=== PATIENT | female | born 1980 | race Hispanic/Latino ===

== ENCOUNTER 2017-09-17 17:15 | Emergency (ER) | payer OTHER ==
[2017-09-17] MEDS ORDERED: ACETAMINOPHEN EXTRA STRENGTH 500 MG TABLET ONE (18:30)
[2017-09-17] MEDS ORDERED: MAG HYDROX/AL HYDROX/SIMETH ES 30 ML SUSP UDCUP ONE (18:30)
[2017-09-17 18:48] LABS: APPEARANCE,URINE Cloudy (CLEAR); BILIRUBIN,URINE Negative (NEGATIVE); COLOR,URINE Yellow (YELLOW); GLUCOSE, URINE (UA) Negative (NEGATIVE); KETONES,URINE 15 mg/dL (NEGATIVE); LEUKOCYTE ESTERASE ,URINE Small (NEGATIVE); NITRATE,URINE Positive (NEGATIVE); OCCULT BLOOD,URINE Small (NEGATIVE); PROTEIN,URINE Trace (NEGATIVE)
[2017-09-17 18:54] LABS: HCG,QUAL RESULT NEGATIVE (NEGATIVE)
[2017-09-17 18:55] LABS: RAPID GROUP A STREP NEGATIVE (NEGATIVE)
[2017-09-17 18:57] LABS: BACTERIA,URINE Many /HPF (None Seen)
[2017-09-17 18:58] LABS: RBC,URINE 0-1 /HPF (0-1); SQUAMOUS EPITHELIAL CELL,UR 0-2 /HPF (0-2)
== END 2017-09-17 19:16 | disposition home or self-care (01) ==
LOC: EDH 17:15
DX: J02.9 Acute pharyngitis, unspecified (principal); N39.0 Urinary tract infection, site not specified
CPT/HCPCS: 81001; 81025; 87804; 87880

== ENCOUNTER 2018-01-01 18:36 | Emergency (ER) | payer OTHER ==
[2018-01-01] MEDS ORDERED: CEPHALEXIN 500 MG CAPSULE ONE (18:55)
[2018-01-01] MEDS ORDERED: DOXYCYCLINE HYCLATE 100 MG TABLET PO ONE (18:55)
[2018-01-01] MEDS ORDERED: ACETAMINOPHEN EXTRA STRENGTH 500 MG TABLET ONE (18:56)
== END 2018-01-01 20:16 | disposition home or self-care (01) ==
LOC: EDH 18:36
DX: L03.115 Cellulitis of right lower limb (principal); Z98.890 Other specified postprocedural states

== ENCOUNTER 2018-01-04 11:12 | Emergency (ER) | payer OTHER ==
[2018-01-04] MEDS ORDERED: LIDOCAINE HCL MPF 1% 5ML VIAL ONE (11:30)
== END 2018-01-04 11:49 | disposition home or self-care (01) ==
LOC: EDH 11:12
DX: L02.611 Cutaneous abscess of right foot (principal)
CPT/HCPCS: 10060; 99283; J3490

== ENCOUNTER 2019-03-15 01:12 | Emergency (ER) | payer OTHER ==
[2019-03-15] MEDS ORDERED: LIDOCAINE 1%-EPI 1:100,000 20 ML VIAL IJ ONE (02:52)
== END 2019-03-15 04:05 | disposition home or self-care (01) ==
LOC: EDH 01:12
DX: S01.81XA Laceration without foreign body of other part of head, initial encounter (principal); Z98.890 Other specified postprocedural states; W10.8XXA Fall (on) (from) other stairs and steps, initial encounter; Y93.89 Activity, other specified; Y92.098 Other place in other non-institutional residence as the place of occurrence of the external cause; Y99.8 Other external cause status
CPT/HCPCS: 12013; 99283; J3490

== ENCOUNTER 2019-09-05 10:02 | Inpatient (IN) | payer OTHER, SELFPAY ==
[~2019-09-05] VITALS: Ht 162.6 cm; Wt 87.5 kg
[2019-09-05] MEDS ORDERED: SODIUM CHLORIDE 0.9% 1000ML 3,000 ML IV ONE (10:25)
[2019-09-05 10:57] LABS: HEMATOCRIT 40.6 % (36-48); LYMPHOCYTES % (AUTO) 26.1 % (21.0-51.0); MEAN CORPUSCULAR HGB CONC 31.8 g/dL (32.0-36.0); MEAN CORPUSCULAR VOLUME 88.3 fL (79-99); MONOCYTES % (AUTO) 8.7 % (3.0-13.0); PLATELET COUNT (AUTO) 312 K/uL (130-400); RED CELL DISTRIBUTION WIDTH 15.2 % (11.0-15.5); WHITE BLOOD COUNT (AUTO) 5.1 K/uL (4.8-10.8)
[2019-09-05 11:06] LABS: CARBON DIOXIDE 29 mmol/L (21-32); CHLORIDE 98 mmol/L (101-111); CREATININE 1.1 mg/dL (0.5-1.5); GLOMERULAR FILTR. RATE CALC 59 mL/min (>60); GLUCOSE,RANDOM 142 mg/dL (70-105); POTASSIUM 3.6 mmol/L (3.5-5.1); SODIUM SERUM 136 mmol/L (136-145); UREA NITROGEN, BLOOD 13 mg/dL (7-18)
[2019-09-05 11:16] LABS: ALANINE AMINOTRANSFERASE 59 U/L (12-78); ALBUMIN 3.7 g/dL (3.5-5.0); ASPARTATE AMINOTRANSFERASE 59 U/L (10-37); BILIRUBIN,TOTAL 0.2 mg/dL (0.2-1.0); CREATINE KINASE, TOTAL 56 U/L (21-232); MYOGLOBIN 24 ng/mL (10-92); TOTAL PROTEIN, SERUM 8.7 g/dL (6.0-8.3); TROPONIN I < 0.04 ng/mL (0.00-0.06)
[2019-09-05 11:33] LABS: INR 0.92 (0.85-1.15); PARTIAL THROMBOPLASTIN TIME 29.5 SEC (26.3-35.5); RAPID GROUP A STREP NEGATIVE (NEGATIVE)
[2019-09-05] MEDS: SODIUM CHLORIDE 0.9% 1000ML 1,000 ML IV SCH (13:24)
[2019-09-05] MEDS ORDERED: ACETAMINOPHEN 325 MG TAB PO PRN (13:30)
[2019-09-05] MEDS ORDERED: ONDANSETRON HCL 4 MG/2 ML VIAL IV PRN (13:30)
[2019-09-05] MEDS ORDERED: LACTULOSE 20 GM/30 ML UDCUP PO PRN (13:30)
[2019-09-05] MEDS: AZITHROMYCIN 500MG+NS 250ML 250 ML IV SCH (14:00)
[2019-09-05] MEDS: CEFTRIAXONE SODIUM 1 GM IV SCH (14:00)
[2019-09-05 14:01] LABS: APPEARANCE,URINE Cloudy (CLEAR); BILIRUBIN,URINE Small (NEGATIVE); COLOR,URINE Dark Yellow (YELLOW); GLUCOSE, URINE (UA) Negative (NEGATIVE); KETONES,URINE 15 mg/dL (NEGATIVE); LEUKOCYTE ESTERASE ,URINE Negative (NEGATIVE); NITRATE,URINE Positive (NEGATIVE); OCCULT BLOOD,URINE Small (NEGATIVE); PH,URINE 5.5 (5.0-8.0); PROTEIN,URINE POS 2+ mg/dL (NEGATIVE)
[2019-09-05 14:15] LABS: BACTERIA,URINE Moderate /HPF (None Seen); RBC,URINE 0-1 /HPF (0-1)
[2019-09-05 14:17] LABS: ABG BASE EXCESS 1.2 mmol/L (-2.0-3.0); ABG HCO3 23.3 mmol/L (21.0-28.0); ABG OXYGEN SATURATION 96.8 % (95.0-99.0); ABG PCO2 30 mmHg (32-45)
[2019-09-05] MEDS ORDERED: METOPROLOL TARTRATE 25 MG TAB PO SCH (15:10)
[2019-09-05] MEDS ORDERED: METHYLPREDNISOLONE SOD SUCC 40MG/ML 1ML ONE (15:17)
[2019-09-05] MEDS ORDERED: ENOXAPARIN SODIUM 30 MG/0.3 ML SQ ONE (15:18)
[2019-09-05] MEDS ORDERED: SODIUM CHLORIDE 0.9% 1000ML 1,000 ML IV ONE (15:18)
[2019-09-05] MEDS ORDERED: AZITHROMYCIN 500MG+NS 250ML 250 ML IV ONE (15:18)
[2019-09-05] MEDS ORDERED: CEFTRIAXONE SODIUM 1 GM ONE (15:19)
[2019-09-05] MEDS ORDERED: METOPROLOL TARTRATE 25 MG TAB ONE (15:19)
[2019-09-05] MEDS ORDERED: SODIUM CHLORIDE 0.9% 50 ML IV ONE (15:20)
[2019-09-05] MEDS ORDERED: ALBUTEROL INHALER 90MCG/INH IH ONE (15:57)
[2019-09-05] MEDS: METOPROLOL TARTRATE 25 MG TAB PO SCH (21:00)
[2019-09-05 21:23] VITALS: BP 116/86
[2019-09-06] VITALS: BP 108/63
[2019-09-06] MEDS: SODIUM CHLORIDE 0.9% 1000ML 1,000 ML IV SCH ×3 (01:16→19:24)
[2019-09-06 04:00] VITALS: BP 99/59
[2019-09-06 05:10] LABS: HEMATOCRIT 35.9 % (36-48); LYMPHOCYTES % (AUTO) 23.9 % (21.0-51.0); MEAN CORPUSCULAR HEMOGLOBIN 27.8 pg (27.0-33.0); MEAN CORPUSCULAR HGB CONC 31.5 g/dL (32.0-36.0); MEAN CORPUSCULAR VOLUME 88.2 fL (79-99); NEUTROPHILS % (AUTO) 67.1 % (40.0-77.0); PLATELET COUNT (AUTO) 297 K/uL (130-400); RED BLOOD CELL COUNT(AUTO) 4.07 MIL/uL (4.00-5.50); WHITE BLOOD COUNT (AUTO) 4.2 K/uL (4.8-10.8)
[2019-09-06 05:29] LABS: HEMOGLOBIN A1C 5.8 % (4.0-6.0)
[2019-09-06 05:41] LABS: ALANINE AMINOTRANSFERASE 49 U/L (12-78); ALBUMIN 3.3 g/dL (3.5-5.0); ASPARTATE AMINOTRANSFERASE 37 U/L (10-37); BILIRUBIN,TOTAL 0.2 mg/dL (0.2-1.0); CARBON DIOXIDE 26 mmol/L (21-32); CHLORIDE 100 mmol/L (101-111); CREATININE 0.8 mg/dL (0.5-1.5); GLOMERULAR FILTR. RATE CALC 85 mL/min (>60); GLUCOSE,RANDOM 101 mg/dL (70-105); POTASSIUM 3.7 mmol/L (3.5-5.1); SODIUM SERUM 136 mmol/L (136-145); TOTAL PROTEIN, SERUM 8.4 g/dL (6.0-8.3); UREA NITROGEN, BLOOD 11 mg/dL (7-18)
[2019-09-06 08:24] VITALS: BP 106/72
[2019-09-06] MEDS: METOPROLOL TARTRATE 25 MG TAB PO SCH ×2 (09:02→21:00)
[2019-09-06] MEDS: ENOXAPARIN SODIUM 30 MG/0.3 ML SQ SCH (09:03)
[2019-09-06 11:28] VITALS: BP 101/62
[2019-09-06] MEDS: METHYLPREDNISOLONE SOD SUCC 40MG/ML 1ML IVP SCH ×2 (11:41→20:45)
[2019-09-06] MEDS: HYDROCODONE/ACETAMINOPHEN 5/325 MG TAB PO PRN ×2 (11:55→21:03)
[2019-09-06] MEDS: AZITHROMYCIN 500MG+NS 250ML 250 ML IV SCH (14:10)
[2019-09-06] MEDS: CEFTRIAXONE SODIUM 1 GM IV SCH (14:10)
--- NOTE | 2019-09-06 15:09 | NUR ---
gerard note] call made to pt's room and pt's mother next of kin, no answer. chart reviewed. pt resides at home with family, independnet with ambulation and adls. no dme. dc plan is back to home at ut. Addendum: 09/06/19 at 1514 by KWAKU SOTELO CM Amended: Links added.
[2019-09-06 16:25] VITALS: BP 100/67
[2019-09-06 20:19] VITALS: BP 125/68
[2019-09-07 00:09] VITALS: BP 102/61
[2019-09-07 04:34] VITALS: BP 117/59
[2019-09-07] MEDS: METHYLPREDNISOLONE SOD SUCC 40MG/ML 1ML IVP SCH ×3 (05:15→20:26)
[2019-09-07] MEDS: SODIUM CHLORIDE 0.9% 1000ML 1,000 ML IV SCH ×2 (05:20→20:26)
[2019-09-07] MEDS: HYDROCODONE/ACETAMINOPHEN 5/325 MG TAB PO PRN ×2 (05:20→20:40)
[2019-09-07 06:14] LABS: BASOPHILS % (AUTO) 0.2 % (0.0-5.0); EOSINOPHILS % (AUTO) 1.7 % (0.0-8.0); HEMATOCRIT 36.3 % (36-48); LYMPHOCYTES % (AUTO) 15.1 % (21.0-51.0); MEAN CORPUSCULAR HEMOGLOBIN 27.7 pg (27.0-33.0); MEAN CORPUSCULAR HGB CONC 31.1 g/dL (32.0-36.0); MONOCYTES % (AUTO) 4.8 % (3.0-13.0); NEUTROPHILS % (AUTO) 77.9 % (40.0-77.0); PLATELET COUNT (AUTO) 328 K/uL (130-400); RED BLOOD CELL COUNT(AUTO) 4.08 MIL/uL (4.00-5.50); RED CELL DISTRIBUTION WIDTH 14.6 % (11.0-15.5); WHITE BLOOD COUNT (AUTO) 6.6 K/uL (4.8-10.8)
[2019-09-07 06:34] LABS: ALBUMIN 3.2 g/dL (3.5-5.0); BILIRUBIN,TOTAL 0.2 mg/dL (0.2-1.0); CREATININE 0.7 mg/dL (0.5-1.5); POTASSIUM 3.9 mmol/L (3.5-5.1); TOTAL PROTEIN, SERUM 7.6 g/dL (6.0-8.3)
[2019-09-07 08:02] VITALS: BP 112/78
[2019-09-07] MEDS: ENOXAPARIN SODIUM 30 MG/0.3 ML SQ SCH (08:57)
[2019-09-07] MEDS: METOPROLOL TARTRATE 25 MG TAB PO SCH ×2 (09:05→20:26)
[2019-09-07 11:42] VITALS: BP 109/67
[2019-09-07] MEDS: AZITHROMYCIN 500MG+NS 250ML 250 ML IV SCH (14:39)
[2019-09-07] MEDS: CEFTRIAXONE SODIUM 1 GM IV SCH (14:39)
[2019-09-07 15:53] VITALS: BP 112/59
--- NOTE | 2019-09-07 20:00 | NUR ---
PT C/O HEADACHE. GIVEN HYDROCODONE PRN. MINIMAL COUGH. AMBULATING.
[2019-09-07 20:08] VITALS: BP 116/73
[2019-09-08 00:14] VITALS: BP 116/71
[2019-09-08] MEDS: SODIUM CHLORIDE 0.9% 1000ML 1,000 ML IV SCH ×2 (01:24→13:53)
[2019-09-08] MEDS: METHYLPREDNISOLONE SOD SUCC 40MG/ML 1ML IVP SCH ×2 (03:55→08:27)
[2019-09-08 04:00] VITALS: BP 99/66
[2019-09-08 04:07] LABS: BASOPHILS % (AUTO) 0.1 % (0.0-5.0); HEMATOCRIT 32.2 % (36-48); LYMPHOCYTES % (AUTO) 8.4 % (21.0-51.0); MEAN CORPUSCULAR HEMOGLOBIN 28.2 pg (27.0-33.0); MEAN CORPUSCULAR VOLUME 88.2 fL (79-99); MONOCYTES % (AUTO) 4.9 % (3.0-13.0); NEUTROPHILS % (AUTO) 86.1 % (40.0-77.0); PLATELET COUNT (AUTO) 324 K/uL (130-400); RED BLOOD CELL COUNT(AUTO) 3.65 MIL/uL (4.00-5.50); RED CELL DISTRIBUTION WIDTH 14.8 % (11.0-15.5); WHITE BLOOD COUNT (AUTO) 10.5 K/uL (4.8-10.8)
[2019-09-08 04:39] LABS: ALBUMIN 2.9 g/dL (3.5-5.0); BILIRUBIN,TOTAL 0.2 mg/dL (0.2-1.0); CREATININE 0.7 mg/dL (0.5-1.5); TOTAL PROTEIN, SERUM 6.8 g/dL (6.0-8.3)
[2019-09-08 08:00] VITALS: BP 107/64
[2019-09-08] MEDS: METOPROLOL TARTRATE 25 MG TAB PO SCH (08:00)
[2019-09-08] MEDS: ENOXAPARIN SODIUM 30 MG/0.3 ML SQ SCH (08:01)
[2019-09-08 11:00] VITALS: BP 105/67
--- NOTE | 2019-09-08 11:29 | NUR ---
DR ROBINS NEW CONSULT FOR DR ROBINS IN TO SEE PATIENT ORDERS RECEIVED FOR CHEST XRAY , LDH, D-DIMMER , CRP AND AMADOU NOW ORDERS PLACED.
[2019-09-08 12:14] LABS: CRP QUANTITATIVE 28.7 mg/L (0.00-9.0)
--- NOTE | 2019-09-08 12:40 | NUR ---
DR ANGI WHITLEY ROUNDED ON PATIENT PER HIS SERVICE PATIENT CAN BE DISCHARGED HOME NO ANTIBIOTIC ORDERED FOR HOME.
[2019-09-08] MEDS: CEFTRIAXONE SODIUM 1 GM IV SCH (13:53)
[2019-09-08] MEDS: AZITHROMYCIN 500MG+NS 250ML 250 ML IV SCH (13:53)
[2019-09-08 15:00] VITALS: BP 103/66
--- NOTE | 2019-09-08 16:30 | NUR ---
DR ROBINS CALLED DR ROBINS AT [phone] , TO GIVE UPDATE ON LABS AND CHEST XRAY RESULTS. AWAITING CALL BACK
--- NOTE | 2019-09-08 18:32 | NUR ---
DR ROBINS RETURN CALL DR ROBINS RETURN CALL AND WAS GIVEN PATIENT LABS AND XRAY RESULT SAID PATIENT CAN BE DISCHARGE TO HOME ON METHYLPREDNISOLONE 6MG PO DAILY TIMES 4 DAYS. CONTACTED ARANZA [employer] TO ORDER MEDICATIONS .
[2019-09-08] MEDS ORDERED: METH2TAB PO (19:08)
--- NOTE | 2019-09-08 19:55 | NUR ---
DISCHARGE INSTRUCTION PATIENT GIVEN DISCHARGE INSTRUCTIONS AND VERBALIZED UNDERSTANDING, REVIEWED MEDICATIONS AND FOLLOW-UP WITH HER PRIMARY PHYSICIAN, PATIENT INSTRUCTED TO CONTINUE TO SELF ISOLATION UNTIL CLEARED BY HER PHYSICIAN TO RETURN TO WORK. PATIENT MEDICATION TRAMITTED TO HEB ON 77, PATIENT INSTRUCTED ON SX TO REPORT TO HER PHYSICIAN, IV REMOVED WITH CATHETER INTACT AND SITE DRESSED, TELEMETRY NOTIFIED AND UNIT REMOVED. NO QUESTIONS OR CONCERNS AT THIS TIME, PATIENT WAITING FOR RIDE TO GO HOME.
== END 2019-09-08 20:41 | disposition home or self-care (01) | DRG 177 ==
LOC: EDH 10:02 → EDHIP 10:03 → 2DH 21:10 → 2AH 22:24
PROVIDERS: ADMIT Hospitalist; ATTEND Hospitalist
DX: U07.1 COVID-19 (principal); J12.89 Other viral pneumonia; A41.9 Sepsis, unspecified organism; R19.7 Diarrhea, unspecified; R53.81 Other malaise; E66.9 Obesity, unspecified; Z68.33 Body mass index [BMI] 33.0-33.9, adult
CPT/HCPCS: 36415; 36600; 71045; 80053; 81001; 81025; 82550; 82728; 82803; 83036; 83605; 83615; 83874; 84145; 84484; 85025; 85378; 85610; 85730; 86140; 87040; 87077; 87088; 87186; 87633; 87635; 87804; 87880; 93005; 99291; G0378; J0456; J0696; J1650; J2920; J7030